=== PATIENT | female | born 1985 | race Caucasian/White ===

== ENCOUNTER 2022-09-21 01:50 | Emergency (ER) | payer SELFPAY ==
[2022-09-21] MEDS ORDERED: Acetaminophen 325 MG TAB ONE (02:30)
== END 2022-09-21 03:00 | disposition home or self-care (01) ==
LOC: BURERS 01:50
DX: R51.9 Headache, unspecified (principal); F32.A Depression, unspecified; K21.9 Gastro-esophageal reflux disease without esophagitis; F17.210 Nicotine dependence, cigarettes, uncomplicated
CPT/HCPCS: 99283